=== PATIENT | male | born 1985 | race Hispanic/Latino ===

== ENCOUNTER 2019-12-01 16:28 | Emergency (ER) | payer SELFPAY ==
[2019-12-01] MEDS ORDERED: Azithromycin 500 MG VIAL ONE (17:03)
[2019-12-01] MEDS ORDERED: cefTRIAXone\\ROCEPHIN 2 GM VIAL ONE (17:03)
[2019-12-01] MEDS ORDERED: Sodium Chloride 0.9% 1,000 ML ONE ×2 (17:03→17:38)
[2019-12-01] MEDS ORDERED: Sodium Chloride 0.9% 250 ML 250 ML ONE (17:04)
[2019-12-01] MEDS ORDERED: Sodium Chloride 0.9% 100 ML ONE (17:04)
--- NOTE | 2019-12-01 17:12 | RAD ---
PORTABLE CHEST: 12/01/19 HISTORY: Dyspnea. Heart size within normal limits. There is patchy bilateral interstitial alveolar lung changes which i s more suggestive of multifocal pneumonia such as COVID rather than edema. IMPRESSION: Multifocal infiltrates suggestive of possibly of COVID pneumonia. POS: OFF
[2019-12-01 17:21] LABS: #Lymphocytes 0.9 thou/uL (1.20-3.40); #Monocytes 0.4 thou/uL (0.11-0.59); #Neutrophils 5.7 thou/uL (1.40-6.50); %Basophils 0.5 % (0.0-1.0); %Lymphocytes 12.6 % (21.0-51.0); %Monocytes 5.2 % (0.0-10.0); %Neutrophils 81.7 % (42.0-75.0); Hemoglobin 17.4 g/dL (14.0-18.0); Mean Corpuscular HGB CONC 32.7 g/dL (32.0-36.0); Mean Corpuscular Hemoglobin 28.8 pg (27.0-31.0); Mean Corpuscular Volume 88.1 fL (78.0-98.0); Mean Platelet Volume 11.5 fL (7.4-10.4); Platelet Count 182 thou/uL (130-400); RBC Distribution Width 11.5 % (11.5-14.5); Red Blood Cell (RBC) Count 6.05 mill/uL (4.70-6.10); White Blood Cell (WBC) Count 6.9 thou/uL (4.8-10.8)
[2019-12-01 17:30] LABS: ALT (SGPT) 32 U/L (8-55); AST (SGOT) 32 U/L (5-34); Albumin 3.6 g/dL (3.5-5.0); Alkaline Phosphatase 62 U/L (40-110); Anion Gap 19 mmol/L (10-20); BUN (Urea Nitrogen) 18 mg/dL (8.9-20.6); Bilirubin, Total 0.6 mg/dL (0.2-1.2); CK (CPK) 70 U/L (30-200); Calc. Creatinine Clearance 0 mL/min (70-130); Calcium 8.6 mg/dL (7.8-10.44); Carbon Dioxide 24 mmol/L (22-29); Chloride 98 mmol/L (98-107); Estimated GFR-MDRD 80; Globulin 4.3 g/dL (2.4-3.5); Glucose 363 mg/dL (70-105); Potassium 4.5 mmol/L (3.5-5.1); Protein, Total 7.9 g/dL (6.0-8.3); Sodium 136 mmol/L (136-145)
[2019-12-01] MEDS ORDERED: Dexamethasone 10 MG/ML VIAL ONE (17:38)
[2019-12-01 17:59] LABS: Base Excess-Venous 1.5 mmol/L (-2.0 to 3.0); Bicarbonate (HCO3v) 25.6 mmol/L (22.0-28.0); CO2 Tension (PvCO2) 49.2 mmHg (40.0-50.0); vO2 Saturation-calc 99.1 % (60.0-85.0)
[2019-12-01 18:00] LABS: Calcium, Ionized 1.03 mmol/L (1.15-1.33); Chloride 104 mmol/L (98-107); Hemoglobin - Calc 20.8 g/dL (14.0-18.0); Potassium 4.9 mmol/L (3.5-5.1); Sodium 136 mmol/L (138-145); T. Carbon Dioxide 27.1 mmol/L (22.0-28.0)
[2019-12-01] MEDS ORDERED: Enoxaparin Sodium 100 MG/ML SYRINGE ONE (18:13)
== END 2019-12-01 18:33 | disposition short-term general hospital (02) ==
LOC: MADERS 16:28
DX: J18.9 Pneumonia, unspecified organism (principal); R06.03 Acute respiratory distress; R09.02 Hypoxemia; E11.9 Type 2 diabetes mellitus without complications
CPT/HCPCS: 71045; 80053; 82330; 82550; 82803; 83605; 83880; 84443; 84484; 85025; 85379; 86140; 87040; 93005; 96365; 96367; 96372; 96375; J0456; J0696; J1100; J1650; J3490; J7050